=== PATIENT | female | born 1985 | race Caucasian/White ===

== ENCOUNTER 2016-08-22 16:58 | Emergency (ER) | payer SELFPAY ==
[~2016-08-22] VITALS: Ht 160 cm; Wt 90.1 kg
[2016-08-22 17:04] VITALS: BP 117/74; PULSE 81; RESP 14; O2SAT 98
[2016-08-22] MEDS ORDERED: PREN1TAB25 PO (17:07)
[2016-08-22] MEDS ORDERED: LEVO50TA83 PO (17:07)
== END 2016-08-22 17:30 | disposition left against medical advice (07) ==
LOC: SED 16:58
DX: Z53.21 Procedure and treatment not carried out due to patient leaving prior to being seen by health care provider (principal)

== ENCOUNTER 2016-09-27 04:35 | Emergency (ER) | payer OTHER ==
[~2016-09-27] VITALS: Ht 160 cm; Wt 94.5 kg
[~2016-09-27 04:35] MED LIST: LEVO50TA83 PO; PREN1TAB25 PO
[2016-09-27 04:37] VITALS: BP 125/78; PULSE 92; RESP 16; O2SAT 100
[2016-09-27] MEDS ORDERED: 0.9% Sodium Chloride 1,000 ML IV ONE (05:19)
[2016-09-27 05:50] LABS: Mean Corpuscular Hemoglobin 28.9 pg (27.0-35.0); Mean Corpuscular Volume 85.3 fL (81-100)
--- NOTE | 2016-09-27 06:01 | ED.REPORT ---
HPI-Abd Pain F Under 40 Date of Service September 27, 2016 ED Provider: Renzo Uribe DO The pt is a 19 week healthy 31 y/o female presenting to the ED complaining of dark red vaginal bleeding onset 0430 this morning. The pt describes the amount of blood being less than her normal menstrual period. She has been three times total and has had 2 miscarriages both around 4 weeks. The pt recently had an ultrasound which was normal. Her partner and her had intercourse last night. She denies any pain or fever. Nursing Notes Stated Complaint: BLEEDING/19 WKS Chief Complaint: Female Abdominal Pain Nursing Notes Reviewed: Yes Allergies: Coded Allergies: No Known Allergies (Unverified , 08/22/16) Scheduled Levothyroxine (Synthroid) 50 Mcg Tablet 50 MCG PO DAILY Vit#96/Ferrous Fum/FA ( Tablet) 1 Each Tablet 1 EACH PO DAILY General Time Seen by MD: 05:23 Chief Complaint Vaginal bleeding Hx Obtained From: Patient Arrived By: Walk-in Sudden in Onset?: Yes Onset Occurred: 1 - 4 hours ago Symptom Duration: Intermittent Severity: Current: No pain currently Severity: Maximum: No pain Recent Healthcare: No recent hospitalization, Recent doctor visit Past Medical History Past Medical History 2 previous miscarriages around 4 weeks Past Surgical History None reported Smoking History Never Smoker Social History Alcohol Use: Denies alcohol use Drug Use: Denies drug use Ambulatory Status Independent Review of Systems Constitutional: Denies: Fever Cardiovascular: Denies: Chest pain GI: Denies: Abdominal pain Female: Reports: Vaginal bleeding - abnl, Denies: Dysuria, Pelvic pain Complete sys rev & neg: except as marked. Physical Exam Initial Vital Signs Vital Signs (First) Date Time Temp Pulse Resp B/P Pulse Ox O2 Delivery O2 Flow Rate FiO2 09/27/16 04:37 36.4 92 16 125/78 100 Room Air Initial VS: Reviewed, Vital signs normal General/Constitutional: Awake, Alert, No acute distress, Well appearing, Cooperative, Not toxic appearing Respiratory / Chest: Atraumatic, Breath sounds NL, Breath sounds = bilat, No respiratory distress, No rales, No rhonchi, No wheezing Cardiovascular: Heart rate NL, Regular rhythm, Heart sounds NL Abdomen: Soft, Non-tender, No guarding, No rebound, No palpable mass, No pulsatile mass gravid uterus at the umbilicus Back: Atraumatic, Full range of motion Head / Eyes: Atraumatic, Normocephalic ENT: Atraumatic, Airway patent Skin: Atraumatic, Color NL, No rash, Warm, Dry Female Genitourinary: Exam deferred Neurologic: Oriented X3, Speech NL Psychiatric: Affect NL, Mood NL Interpretation & Diagnostics Lab Results Interpretation Result Diagram: 09/27/16 0540 09/27/16 0540 Test 09/27/16 05:15 09/27/16 05:40 Urine Color Straw (YELLOW) Urine Appearance Clear (CLEAR,HAZY) Urine pH N (5.0-8.0) Urine Specific [place] N (1.003-1.035) Urine Protein Negativemg/dL (NEG,TRACE) Urine Glucose (UA) Negativemg/dL (NEGATIVE) Urine Ketones Negativemg/dL (NEGATIVE) Urine Occult Blood Negative (NEGATIVE) Urine Nitrite Negative (NEGATIVE) Urine Bilirubin Negative (NEGATIVE) Urine Urobilinogen Normalmg/dL (NORMAL) Urine Leukocyte Esterase Negative (NEGATIVE) Urine RBC 0-2/hpf (0-2) Urine WBC 0-5/hpf (0-5) Urine Epithelial Cells Few/hpf (NONE-MOD) Urine Crystals None seen (NONE SEEN) Urine Bacteria Few/hpf (NONE-FEW) Urine Hyaline Casts None/lpf (NONE) Urine Granular Casts None seen (NONE SEEN) Urine Waxy Casts None seen (NONE SEEN) Urine Red Blood Cell Casts None seen (NONE SEEN) Urine White Blood Cell Casts None seen (NONE SEEN) Urine Mucus None seen (None Seen) Urine Trichomonas None seen (NONE SEEN) Urine Yeast None (NONE SEEN) Urinalysis Comment None Urine Culture Reflexed Not indicated White Blood Count 9.6th/mm3 (3.8-10.1) Red Blood Count 4.36mil/mm3 (3.90-5.20) Hemoglobin 12.6g/dL (12.0-15.6) Hematocrit 37.2% (35.0-46.0) Mean Corpuscular Volume 85.3fL (81-100) Mean Corpuscular Hemoglobin 28.9pg (27.0-35.0) Mean Corpuscular Hemoglobin Concent 33.9% (32.0-37.0) Red Cell Distribution Width 13.4% (12.3-15.4) Platelet Count 187bil/L (150-400) Sodium Level 138mEq/L (134-144) Potassium Level 3.9mEq/L (3.5-5.2) Chloride Level 102mEq/L (97-108) Carbon Dioxide Level 23mmol/L (18-29) Blood Urea Nitrogen 8mg/dL (6-20) Creatinine 0.44mg/dL (0.57-1.00) Estimat Glomerular Filtration Rate 236mL/min (>59) Glucose Level 92mg/dL (60-99) Calcium Level 9.1mg/dL (8.5-10.1) Total Bilirubin 0.2mg/dL (0.0-1.2) Aspartate Amino Transf (AST/SGOT) 13U/L (0-50) Alanine Aminotransferase (ALT/SGPT) 10U/L (0-32) Alkaline Phosphatase 51U/L (25-150) Total Protein 6.3g/dL (6.4-8.4) Albumin 3.4g/dL (3.4-5.0) US Focused OB IMPRESSION: 1. Single living intrauterine demonstrated with composite gestational age of 19 weeks 2 days. 2. No mireya-placental fluid collections to suggest abruption. Dictated by: Bib Franco M.D. on 09/27/2016 at 8:12 Approved by: Bib Franco M.D. on 09/27/2016 at 8:18 Exam Performed by: Allied health pract Exam Interpreted by: Radiologist Re-Eval/Medical Decision Med Decision/Clinical Course Med Decision/Clinical Course: Reassuring workup. Likely related to recent intercourse. Bleeding has resolved. Strict return in follow-up precautions given. Source of Hx: Old records Re-Evaluation/Progress : Time of Eval: 07:39 Re-Evaluation/Progress Note: Pt rechecked. Informed pt of plan for treatment. Pt understands and agrees with plan for treatment. F/U instructions and RTER warnings given. All questions addressed. Counseled Regarding: Diagnosis, Lab results, Need for follow-up, When/why to return to ED Discharge & Departure Primary Impression: Vaginal bleeding in patient at less than 20 weeks gestation Disposition: Home Discharge Condition All VS Reviewed: Yes Condition: Stable Additional Instructions: Overall the fetus is well appearing. Observe pelvic rest, no intercourse, no lifting over 10 pounds. Call [facility] Wednesday morning for close follow-up and reevaluation. Return the ER for severe pain and persistent bleeding or any other concerns. Referrals: [facility]OPCP (PCP) Scribe Attestation Portions of this note were transcribed by Barrett Shaffer and Jeff Linda. I, Dr. Jair Jimenez personally performed the history, physical exam and medical decision- making; I reviewed and confirmed the accuracy of the information in the transcribed note. Signed by: Chris Vega, 09/27/16 and 0705. Renzo Uribe DO September 27, 2016 06:01 Barrett Shaffer September 27, 2016 06:12 JEFF LINDA September 27, 2016 07:11
[2016-09-27 06:07] LABS: APPEARANCE,URINE CLEAR (CLEAR,HAZY); COLOR,URINE STRAW (YELLOW); OCCULT BLOOD,URINE NEGATIVE (NEGATIVE); PH,URINE N (5.0-8.0); UROBILINOGEN,URINE NORMAL (NORMAL)
[2016-09-27 06:34] VITALS: BP 124/70; PULSE 90; RESP 16; O2SAT 99
[2016-09-27 08:03] VITALS: BP 121/80; PULSE 74; RESP 14; O2SAT 100
--- NOTE | 2016-09-27 08:25 | DRSVH ---
PROCEDURE: US OB FOLLOW UP GROWTH INDICATIONS: bleeding at 19 weeks OUTSIDE/PRIOR DATING DATA: Last menstrual period (LMP): Unknown. First dating scan (date and location): Outside ultrasound not available. TECHNIQUE: Real-time scanning was performed of the fetus, with image documentation and biometric measurements. COMPARISON: None. FINDINGS: General: A single living intrauterine gestation is present. Presentation: Transverse Placenta: Placental position is anterior, without previa. The inferior placental margin is approxim ately 2.9 cm from the internal cervical os. No mireya-placental collections to suggest abruption. OB-STAGE SET UP WORKER Ultrasound Procedure Report Summary Fetus Summary Estimated Gestational Age from first dating scan: N./A. Estimated Gestational Age from present scan: 19 weeks, 2 days Estimated Weight (EFW): 286 g EFW percentile rank: N./A. Heart Rate: 156 bpm Findings(Amniotic Sac) Amniotic Fluid Index: 13.30 cm Biometry BiometryGroup Biparietal Diameter (Mean): 4.41 cm Gestational Age (BPD): 19 weeks, 2 days Head Circumference (Mean): 16.52 cm Gestational Age (HC): 19 weeks, 2 days Abdominal Circumference (Mean): 14.28 cm Gestational Age (AC): 19 weeks, 4 days Femur Length (Mean): 2.92 cm Gestational Age (FL): 19 weeks, 0 days Pelvis and Uterus Cervix Length: 3.71 cm Measurement variability in biometric dating: +/- 10 days from 12-20 weeks gestation, +/- 2 weeks from 20-30 weeks gestation, +/- 3 weeks at 30 weeks gestation or more. IMPRESSION: 1. Single living intrauterine demonstrated with composite gestational age of 19 weeks 2 da ys. 2. No mireya-placental fluid collections to suggest abruption. Dictated by: Bib Franco M.D. on 09/27/2016 at 8:12 Approved by: Bib Franco M.D. on 09/27/2016 at 8:18
== END 2016-09-27 08:04 | disposition home or self-care (01) ==
LOC: SED 04:35
DX: O20.9 Hemorrhage in early pregnancy, unspecified (principal); Z3A.19 19 weeks gestation of pregnancy
CPT/HCPCS: 36415; 76816; 80053; 81000; 85027; 96360; 99285; J7030